=== PATIENT | male | born 1935 | race Caucasian/White ===

== ENCOUNTER 2017-01-11 16:11 | Inpatient (IN) | payer MEDICARE ==
[~2017-01-11] VITALS: Ht 185.4 cm; Wt 83.0 kg
[2017-01-13 08:55] VITALS: BP 102/63; PULSE 72; TEMP 97.5
[2017-01-13] MEDS ORDERED: COUMADIN 3MG3 MG/TAB PO (09:11)
[2017-01-13] MEDS ORDERED: PRINIVIL20 MG PO (09:12)
[2017-01-13] MEDS ORDERED: ASPIRIN 81M81 MG/TA2 PO (09:12)
[2017-01-13] MEDS ORDERED: MULTIPLE VITAMI1 CAP PO (09:12)
[2017-01-13] MEDS ORDERED: FISH OIL1000 MG PO (09:13)
[2017-01-13] MEDS ORDERED: SAW PALMETTO 101 SGL PO (09:13)
[2017-01-13] MEDS ORDERED: RYTHMOL 15150 MG/TAB PO (09:14)
[2017-01-13] MEDS ORDERED: TOPROL XL 50MG50 MG PO (09:15)
[2017-01-13 12:35] VITALS: BP 119/68; PULSE 71; TEMP 97.4
[2017-01-13 12:36] LABS: ADD PATHOLOGY DIFF REVIEW NO
[2017-01-13 12:47] LABS: HEMOGLOBIN 13.9 g/dl (13.5-18.0); MEAN CELL VOLUME 99 fl (80.0-100.0); MEAN CORPUSCULAR HEMOGLOBIN 33 pg (27.0-31.0); MEAN CORPUSCULAR HGB CONC 33 g/dl (33.0-37.0); MEAN PLATELET VOLUME 9.5 fl (7.4-10.4); PLATELET COUNT 191 K/mm3 (130-400); RED BLOOD COUNT 4.26 M/mm3 (4.20-5.60); REDCELL DISTRIBUTION WIDTH-CV 14.1 % (11.5-14.5); WHITE BLOOD COUNT 6.2 K/mm3 (4.8-10.8)
[2017-01-13 13:00] LABS: INR 2.8 (0.8-3.0); PROTHROMBIN TIME 31.5 SECONDS (9.7-12.8)
[2017-01-13 13:01] LABS: ADJUSTED CALCIUM 9.2 mg/dL (8.4-10.2); ALBUMIN 3.5 gm/dL (3.5-5.0); BILIRUBIN,TOTAL 0.7 mg/dL (0.0-1.0); CALCIUM 8.8 mg/dL (8.4-10.2); CREATININE, serum 1.09 mg/dL (0.66-1.25); MAGNESIUM 1.6 mg/dL (1.6-2.3); POTASSIUM 4.4 mmol/L (3.4-5.0)
[2017-01-13 13:33] LABS: BAND 4 % (0-10); EOSINOPHIL 2 % (0-4); NEUTROPHILS 61 % (42.0-75.2); TOTAL CELLS COUNTED 100
[2017-01-13 13:35] LABS: HYPOCHROMIA 1+
[2017-01-13 16:37] VITALS: BP 108/62; PULSE 70; TEMP 97.8
[2017-01-13 19:56] VITALS: BP 111/67; PULSE 71; TEMP 98.6
[2017-01-13 23:55] VITALS: BP 117/65; PULSE 69; TEMP 97.8
[2017-01-14 04:16] VITALS: BP 115/56; PULSE 71; TEMP 98.2
[2017-01-14 08:35] LABS: INR 2.4 (0.8-3.0); PROTHROMBIN TIME 27.5 SECONDS (9.7-12.8)
[2017-01-14 08:56] VITALS: BP 96/63; PULSE 72; TEMP 98
[2017-01-14 11:16] VITALS: BP 111/69; PULSE 67; TEMP 97.6
[2017-01-14 16:11] VITALS: BP 105/65; PULSE 90
[2017-01-14 19:49] VITALS: BP 99/61; PULSE 67
[2017-01-14 23:17] VITALS: BP 93/42; PULSE 64; TEMP 98
[2017-01-15] VITALS (8 sets, daily range): BP systolic 88–118; BP diastolic 43–66; PULSE 57–85; TEMP 97.6–98.2
[2017-01-15 09:26] LABS: INR 2.2 (0.8-3.0); PROTHROMBIN TIME 24.4 SECONDS (9.7-12.8)
[2017-01-15] MEDS ORDERED: BETAPACE 120MG120 MG PO (13:29)
== END 2017-01-15 13:54 | disposition home or self-care (01) | DRG 310 ==
LOC: MEDICAL 01-13 08:21
PROVIDERS: Internal Medicine Cardiovascular Disease
PROC: 5A2204Z Restoration of Cardiac Rhythm, Single (ICD-10-PCS; principal; 2017-01-15)
DX: I48.0 Paroxysmal atrial fibrillation (principal); I10 Essential (primary) hypertension; Z79.01 Long term (current) use of anticoagulants
CPT/HCPCS: J2250; J3010; J7040